=== PATIENT | female | born 1970 | race Native Hawaiian/Other Pacific Islander ===

== ENCOUNTER 2019-07-27 10:19 | Emergency (ER) | payer OTHER ==
[~2019-07-27] VITALS: Ht 162.6 cm; Wt 130.6 kg
[2019-07-27 10:30] VITALS: TEMP 98.6
[2019-07-27 11:20] LABS: PLATELET COUNT 467 K/uL (152-353)
[2019-07-27 11:26] LABS: POTASSIUM 3.6 mmol/L (3.6-5.2)
[2019-07-27 13:14] VITALS: BP 144/84
== END 2019-07-27 13:13 | disposition home or self-care (01) ==
LOC: ED 10:19
PROVIDERS: Family Medicine
DX: L03.116 Cellulitis of left lower limb (principal); I89.0 Lymphedema, not elsewhere classified
CPT/HCPCS: 80053; 85027; 99283